=== PATIENT | female | born 1980 | race Caucasian/White ===

== ENCOUNTER 2021-09-19 13:54 | Emergency (ER) | payer SELFPAY ==
[2021-09-19 14:04] VITALS: BP 143/99; PULSE 78; RESP 18; TEMP 36.8; O2SAT 100
[2021-09-19 15:39] LABS: Basophils Percent Auto 0.4 % (0.2-1.2); Eosinophils Absolute Auto 0.1 K/mm3 (0-0.3); Eosinophils Percent Auto 1.5 % (0-4.4); Hemoglobin 13.6 g/dL (12.0-15.0); Immature Granulocyte Absolute 0.02 K/mm3 (0.00-0.031); Immature Granulocyte Percent A 0.2 % (0-0.5); Lymphocytes Absolute Auto 3.07 K/mm3 (0.9-3.2); Lymphocytes Percent Auto 32.9 % (18.3-44.2); Mean Corpuscular Hemoglobin 32.7 pg (26-34); Mean Corpuscular Volume 96.2 fl (80-100); Mean Platelet Volume 9.6 fl (7.4-10.4); Monocytes Absolute Auto 0.6 K/mm3 (0.1-0.6); Monocytes Percent Auto 6.5 % (2.6-8.5); Neutrophils Absolute Auto 5.4 K/mm3 (1.3-6.7); Neutrophils Percent Auto 58.5 % (45.5-73.1); Platelet Count Result 313 k/mm3 (150-375); Red Blood Count 4.16 M/mm3 (4.2-5.4); Red Cell Distribution Width 13.2 % (11.5-14.5); White Blood Count 9.3 K/mm3 (4.5-10.0)
[2021-09-19 15:50] LABS: Add Urine Microscopic? YES; Appearance Urine Clear (Clear); Bacteria Urine Trace /hpf; Bilirubin Urine Negative (Negative); Blood Urine 1+ (Negative); Color Urine Straw (Yellow); Glucose Urine UA Negative (Negative); Ketones Urine Negative (Negative); Leukocyte Esterase Ur Negative LEU/UL (Negative); Mucus Urine Rare /lpf; Nitrate Urine Negative (Negative); Protein Urine Negative (Negative); Specific Grav Ur 1.006 (1.001-1.035); Squamous Epithelial Cell Urine Rare /hpf (Few); Urobilinogen Urine Negative mg/dL (<2.0); WBC Urine 0-3 /hpf
[2021-09-19 15:52] LABS: Alanine Aminotransferase 22 U/L (4-35); Albumin Level 4.3 g/dL (3.5-5.1); Alkaline Phosphatase 48 U/L (38-126); Anion Gap 7 mmol/L (8-16); Aspartate Amino Transferase 24 U/L (14-36); Bilirubin,Total 0.5 mg/dL (0.2-1.3); Blood Urea Nitrogen 8 mg/dL (7-17); Calcium 9.4 mg/dL (8.4-10.2); Carbon Dioxide 23 mmol/L (22-30); Chloride 106 mmol/L (98-107); Estimated CRCL calculation 75 ml/min; Estimated Glomerular Filt Rate > 60; Glucose 91 mg/dL (65-110); Potassium 3.5 mmol/L (3.4-5.0); Sodium 136 mmol/L (137-145)
[2021-09-19 16:00] LABS: NT Pro B Type Natriuretic Pept 77 pg/mL (5-100)
[2021-09-19 16:06] LABS: D Dimer 0.27 ug/mL (<0.48)
--- NOTE | 2021-09-19 16:49 | ED.EXTPRO ---
HPI - Extremity Problem General Chief complaint: Extremity Problem,Nontraumatic Stated complaint: bilateral ankle swelling Time Seen by Provider: 09/19/21 14:40 Source: patient Mode of arrival: ambulatory Limitations: no limitations History of Present Illness HPI Narrative: 41-year-old female Complains of painless bilateral foot swelling for 2 or 3 days She does work long days on her feet, otherwise does not have any specific medical problems or take any medications that ought to result and edema as far as she knows Specifically there is no cardiac, renal, or liver disease that she knows of She has no fever, no pain, no history of injury Related Data Allergies Allergy/AdvReac Type Severity Reaction Status Date / Time morphine Allergy Mild Unknown Verified 09/19/21 14:12 sulfamethoxazole Allergy Mild Unknown Verified 09/19/21 14:12 trimethoprim Allergy Mild Unknown Verified 09/19/21 14:12 Review of Systems Review of Systems: All systems reviewed & are unremarkable except as noted in HPI and below Constitutional: Constitutional: Reports no additional constitutional complaints, Denies fever(s) and Denies headache(s) ENT: Denies headache(s) Cardiovascular: Cardiovascular: Denies chest pain and Denies dyspnea Respiratory: Respiratory: Denies cough and Denies dyspnea Gastrointestinal: Gastrointestinal: Denies abdominal pain, Denies diarrhea and Denies vomiting Genitourinary: Genitourinary: Denies urinary frequency and Denies dysuria Musculoskeletal: Musculoskeletal: Denies deformity, Denies arthralgias, Reports joint swelling and Denies numbness Integumentary/Breasts: Skin/Breast: Denies rash and Denies wounds Neurologic: Denies numbness Endocrine: Endocrine: Reports no additional endocrine complaints Allergic/Immunologic: Allergic/Immunologic: Reports no additional allergic/immunologic complaints Exam Const: General: cooperative, healthy appearing, no acute distress and alert Orientation/consciousness: patient oriented x3 (alert) HENMT: Head: normal to inspection, normocephalic and atraumatic Ears: external ears normal General nose exam: no epistaxis Eyes: Conjunctivae: conjunctivae normal EOM: EOMs intact bilaterally Neck: Neck: normal visual inspection, supple and no JVD Resp: Effort & Inspection: normal respiratory effort and not labored Auscultation: clear to auscultation bilaterally and other (BS =) Cardio: Rate: regular rate Rhythm: regular rhythm GI: GI Palp: Yes Soft to palpation and No Tenderness to palpation present (GI) Skin: General skin exam: normal color and no rashes or lesions noted Rashes: no rashes Neuro: General: patient oriented x3 (alert) and moves all extremities Speech: normal speech Extrem: General: normal to inspection Other: Trace to 1+ edema bilaterally to just above ankles, no calf tenderness, normal cap refill, normal pulses Psych: Affect: normal affect Course Course Emergency Course: Initial assessment in the ED is unrevealing, discussed with patient that there was no evidence of any cardiac, liver, renal, or venous disease to account for her symptoms recommend elevation, elastic stockings, follow-up with your primary for further evaluation if that does not succeed Vital Signs Vital signs: Vital Signs Temperature 36.8 C 09/19/21 14:04 Pulse Rate 78 09/19/21 14:04 Respiratory Rate 18 09/19/21 14:04 Blood Pressure 143/99 H 09/19/21 14:04 Pulse Oximetry 100 09/19/21 14:04 Temperature 36.8 C 09/19/21 14:04 Pulse Rate 78 09/19/21 14:04 Respiratory Rate 18 09/19/21 14:04 Blood Pressure 143/99 H 09/19/21 14:04 Pulse Oximetry 100 09/19/21 14:04 MDM - Extremity (Nontraumatic) Lab Data Result diagrams: 09/19/21 15:18 09/19/21 15:18 Labs: Lab Results 09/19/21 09/19/21 09/19/21 Range/Units 15:18 15:18 15:18 WBC 9.3 (4.5-10.0) K/mm3 RBC 4.16 L (4.2-5.4) M/mm3 Hgb 13.6 (12.0-15.0)
== END 2021-09-19 17:05 | disposition home or self-care (01) ==
PROVIDERS: Emergency Provider Emergency Medicine
DX: R60.0 Localized edema (principal)
CPT/HCPCS: 36415; 80053; 81001; 83880; 85025; 85380; 99283

== ENCOUNTER 2024-10-08 09:57 | Emergency (ER) | payer SELFPAY ==
[2024-10-08 10:02] VITALS: PULSE 90; RESP 20; TEMP 37; O2SAT 100
--- OUTSIDE RECORDS SUMMARY | 2024-10-08 11:09 | XMS_ITS | Clinical Summary ---
Author Organization [facility] Address [facility] [place] [address] Care Team Providers Care Eeg Technician Name Role Phone Gracia Milton Primary Care Provider [phone] Allergies Active Allergy Reactions Criticality Noted Date Comments Sulfamethoxazole-Trimethoprim Rash Low 2023 Entire body rash Morphine Swelling 08/04/2024 Medications SLYND 4 MG Tab Take 1 tablet by mouth daily. 07/04/2024 Active acyclovir (ZOVIRAX) 400 MG tablet Take 1 tablet (400 mg total) by mouth daily. 05/24/2024 Active Active Problems Problem Noted Date Diagnosed Date Cigarette nicotine dependence without complicati on 08/04/2024 Overview (08/04/2024): Initial visit 08/04/2024: She reports she smokes 1 pack/day cigarettes daily and has been smoking since she was a teenager. She reports in the past she has quit for a 3-month period time however resumed. She is not interested in quitting at this time. Assessment & Plan (08/04/2024 10:08 AM ADMISSIONS ASSISTANT): Counseled patient on the importance of smoking cessation. She is not interested in smoking cessation at this time. Uses marijuana 08/04/2024 Overview (08/04/2024): Initial visit 08/04/2024: She reports she smokes marijuana daily History of concussion 08/04/2024 Recurrent oral herpes simplex 08/04/2024 Overview (08/04/2024): Initial visit 08/04/2024: She reports she takes acyclovir 400 mg daily and 400 mg twice daily if she has active lesion. She reports she has been having episodes for as long as she can remember. Assessment & Plan (08/04/2024 10:53 AM ADMISSIONS ASSISTANT): Patient counseled that because she is on acyclovir long-term she likely needs her kidney and liver function checked. Family history of diabetes mellitus (DM) 024 OAB (overactive bladder) 08/04/2024 Overview (08/04/2024): Initial visit 08/04/2024: She reports she has tried medications in the past however could not tolerate side effects. Not currently on medication. Restless leg syndrome 08/04/2024 Overview (08/04/2024): Initial visit 08/04/2024: Patient reported. She reports she has been experiencing for a few years. She is not currently on medication therapy. Assessment & Plan (08/04/2024 10:28 AM ADMISSIONS ASSISTANT): Discussed with patient that blood count likely needs to be checked as anemia can contribute to restless leg symptoms. This can be done at another time. History of 08/04/2024 Screening for depression declined 08/04/2024 Overview (08/04/2024): Declined 08/04/2024 External hemorrhoids 08/04/2024 Assessment & Plan (08/04/2024 10:54 AM ADMISSIONS ASSISTANT): Patient has small, nonthrombosed external hemorrhoids. I suspect she may have internal hemorrhoids however internal rectal exam was not performed at this visit. Patient is counseled on the importance of softening her stool so she does not to strain for bowel movements and is recommended to take docusate sodium 100 mg oral twice daily in addition to increasing dietary fiber intake specially with bulk forming laxatives such as psyllium. She can use topical hydrocortisone 2.5% cream twice daily to anus up to however no more than 7 days. She can also use witch sameer pads [id number] after bowel movements to help with irritation. Resolved Problems Problem Noted Date Diagnosed Date Resolved Date Colon cancer screening 08/04/202408/11 Encounters Date Type Department Care Team Description 08/04/2024 9:20 AM ADMISSIONS ASSISTANT Office Visit [facility] Multispecialty Care - [address] [place] [address] Gracia Milton, Establish Care 08/04/2024 Travel from Last 3 Months Family History Medical History Relation Comments Alcohol/Drug Brother No Known Problems Father No Known Problems Half-sister Leukemia Maternal Grandfather Cancer Maternal Grandmother unknown typ e Diabetes Mother No Known Problems Son Relation Status Comments Brother Alive Father Unknown Half-brother Alive Half-sister Alive Maternal Grandfather Maternal Grandmother Mother Alive Other Paternal Grandfather Unknown Paternal Grandmother Unknown Son Alive Social History Tobacco Use Types Packs/Day Years Used Date Smoking Tobacco: Every Day Cigarettes Smokeless Tobacco: Never Tobacco Cessation:Ready to Q uit: No; Counseling Given: Yes Alcohol Use Standard Drinks/Week Comments Not Currently 0 (1 standard drink = 0.6 oz pur e alcohol) Comments No Sex and Gender Information Value Date Recorded Sex Assigned at Not on file Legal Sex Female 8:30 PM CDT Gender Identity Not on file Sexual Orientation Not on file Last Filed Vital Signs Vital Sign Reading Time Taken Comments Blood Pressure 126/64 08/04/2024 9:27 AM ADMISSIONS ASSISTANT Pulse 80 08/04/2024 9:27 AM ADMISSIONS ASSISTANT Temperature - - Respiratory Rate 16 08/04/2024 9:27 AM ADMISSIONS ASSISTANT Oxygen Saturation 98% 08/04/2024 9:27 AM ADMISSIONS ASSISTANT Inhaled Oxygen Concentration - - Weight 53.3 kg (117 lb 6.4 oz) 08/04/2024 9:27 A M ADMISSIONS ASSISTANT Height 157.5 cm (5' 2 ) 08/04/2024 9:27 AM ADMISSIONS ASSISTANT Body Mass Index 21.47 08/04/2024 9:27 AM ADMISSIONS ASSISTANT Plan of Treatment Health Maintenance Due Date Last Done Comments Cervical Cancer Screening Pa p Smear (Age 30 to 64) Every 3 Years 1979 Colorectal Cancer Screening Colonoscopy (10 Years) 1979 Annual Physical 1982 Pneumococcal Vaccine: Pediat rics (0 to 5 Years) and At-Risk Patients (6 to 64 Years) (1 of 2 - PCV) 1985 PHQ-2 (Physician [place]) 1991 Hepatitis C 1997 Hepatitis B Vaccines (1 of 3 - 19+ 3-dose series) 1998 Cervical Cancer Screening Pa p with HPV Testing (Age 30 to 64) Every 5 Years 2009 Cervical Cancer Screening with HPV 2009 Mammogram Screening 2019 COVID-19 Vaccine (1 - 2023-2 5 season) 2024 Influenza Adult (#1) 2024 PHQ-2 (Physician [place]) 08/13/2024 DTaP, Tdap and Td Vaccines ( 2 - Td or Tdap) 08/08/2025 08/08/2015 HPV Vaccines Aged Out No longer eligi ble based on patient's age to complete this topic Meningococcal B Vaccine Aged Out No l onger eligible based on patient's age to complete this topic Meningococcal Vaccine Aged Out No elvis lamin eligible based on patient's age to complete this topic RSV Immunizations Under 20 Months Aged Out No longer eligible based on patient's age to complete this topic Care Teams Eeg Technician Relationship Specialty Start Date End Date Gracia Milton DO [address] [place] [address] PCP - General FAMILY PRACTICE 08/01/24
--- NOTE | 2024-10-08 12:01 | ED_ITS ---
HPI - URI/Sore Throat General Chief Complaint: Upper Respiratory Infection <Fani Hernandez PA-C - Last Filed: 10/08/24 14:46> Stated Complaint: my throat, my ear, I haven't ate since Sunday <Fani Hernandez PA-C - Last Filed: 10/08/24 14:46> Time Seen by Provider: 10/08/24 12:01 <Fani Hernandez PA-C - Last Filed: 10/08/24 14:46> Focused HPI: This is a 44 year old female that presents to the ER for sore throat. Ongoing over the last 3 days. Reports fevers, cough, headache. GENERAL: Well-appearing, well-nourished, and in no acute distress. HEAD: Normocephalic, atraumatic. CHEST: Clear to auscultation. ?No respiratory distress. HEART: Regular rate and rhythm.? NEURO: ?Alert and oriented x3. Patient screened in triage and initial orders placed.? ?Additional care and disposition to be based upon?diagnostic testing and treatment. <Fani Hernandez PA-C - Last Filed: 10/08/24 14:46> History of Present Illness HPI Narrative: Patient 44-year-old female presents emergency department with chief complaint of sore throat and bilateral ear pain. The patient reports that she has history of multiple ear infections. Patient reports that symptoms been ongoing since Sunday reports that hurts whenever she swallows but is able to swallow. Patient denies stridor <Freddy Rosales MD - Last Filed: 10/08/24 13:21> Related Data Allergies/Adverse Reactions: Allergies Allergy/AdvReac Type Severity Reaction Status Date / Time morphine Allergy Mild Unknown Verified 10/08/24 09:58 sulfamethoxazole Allergy Mild Unknown Verified 10/08/24 09:58 trimethoprim Allergy Mild Unknown Verified 10/08/24 09:58 <Fani Hernandez PA-C - Last Filed: 10/08/24 14:46> Review of Systems Review of Systems: A 10 system review of systems was completed on the patient and is negative except for what is stated in the HPI. Nursing and ancillary documentation was reviewed. <Freddy Rosales MD - Last Filed: 10/08/24 13:21> Exam Narrative: GENERAL: Well-appearing, well-nourished, and in no acute distress. HEAD: Normocephalic, atraumatic. EYES: PERRLA and EOMI. ENT: Nares clear, no rhinorrhea or epistaxis. Mucous membranes moist. Left tympanic membrane is erythematous and there is effusion present NECK: Supple. CHEST: Clear to auscultation. No respiratory distress. HEART: Regular rate and rhythm. No murmur heard. Normal peripheral pulses. ABDOMEN: Soft, nontender, nondistended, normal active bowel sounds. EXTREMITIES: Normal range of motion. No edema. SKIN: Warm, dry, no rash. NEURO: No focal deficits. Alert and oriented x3. PSYCH: Normal mood and affect. <Freddy Rosales MD - Last Filed: 10/08/24 13:21> Course Vital Signs Vital signs: Vital Signs Temperature 98.6 F 10/08/24 10:02 Pulse Rate 90 10/08/24 10:02 Respiratory Rate 20 10/08/24 10:02 Pulse Oximetry 100 10/08/24 10:02 Oxygen Delivery Room Air 10/08/24 10:02 Temperature 98.6 F 10/08/24 10:02 Pulse Rate 75 10/08/24 13:58 Respiratory Rate 16 10/08/24 13:58 Blood Pressure 125/86 10/08/24 13:58 Pulse Oximetry 100 10/08/24 13:58 Oxygen Delivery Room Air 10/08/24 12:42 <Fnai Hernandez PA-C - Last Filed: 10/08/24 14:46> Vital Signs Temperature 98.6 F 10/08/24 10:02 Pulse Rate 90 10/08/24 10:02 Respiratory Rate 20 10/08/24 10:02 Pulse Oximetry 100 10/08/24 10:02 Oxygen Delivery Room Air 10/08/24 10:02 Temperature 98.6 F 10/08/24 10:02 Pulse Rate 75 10/08/24 13:58 Respiratory Rate 16 10/08/24 13:58 Blood Pressure 125/86 10/08/24 13:58 Pulse Oximetry 100 10/08/24 13:58 Oxygen Delivery Room Air 10/08/24 12:42 <Freddy Rosales MD - Last Filed: 10/08/24 13:21> MDM - URI/Sore Throat MDM Narrative Medical decision making narrative: Differential diagnosis includes viral illness, otitis media, strep pharyngitis Patient was positive on exam for acute otitis media on the left Patient was started on Augmentin for this The patient is negative for strep patient did have significant pharyngitis patient was started on steroids <Freddy Rosales MD - Last Filed: 10/08/24 13:21> Lab Data Labs: Lab Results 10/08/24 Range/Units 12:42 Influenza A (RT-PCR) Positive A (Negative) Influenza B (RT-PCR) Negative (Negative) RSV (RT-PCR) Negative (Negative) SARS-CoV-2 RNA (RT-PCR) Negative (Negative) Group A Strep (PCR) Not detected (Negative) <Fani Hernandez PA-C - Last Filed: 10/08/24 14:46> Lab Results 10/08/24 Range/Units 12:42 Influenza A (RT-PCR) Positive A (Negative) Influenza B (RT-PCR) Negative (Negative) RSV (RT-PCR) Negative (Negative) SARS-CoV-2 RNA (RT-PCR) Negative (Negative) Group A Strep (PCR) Not detected (Negative) <Frdedy Rosales MD - Last Filed: 10/08/24 13:21> Critical Care Time Critical Care Time Critical Care Time: No <Fani Hernandez PA-C - Last Filed: 10/08/24 14:46> Discharge Plan Discharge Clinical Impression: Acute left otitis media, Influenza A Pharyngitis Qualifiers: Pharyngitis/tonsillitis etiology: unspecified etiology Qualified Code(s): J02.9 - Acute pharyngitis, unspecified <Fani Hernandez PA-C - Last Filed: 10/08/24 14:46> Patient Disposition: Home, Self-Care <Fani Hernandez PA-C - Last Filed: 10/08/24 14:46> Condition: Stable <Fani Hernandez PA-C - Last Filed: 10/08/24 14:46> Instructions: Antibiotic Form, Pharyngitis (ED), Ear Infection (ED), Earache (ED) <Fani Hernandez PA-C - Last Filed: 10/08/24 14:46> Patient Language: Maltese <Fani Hernandez PA-C - Last Filed: 10/08/24 14:46> Prescriptions: New amoxicillin-pot clavulanate 875-125 mg tablet 1 tablet PO Q12H 10 Days Qty: 20 0RF prednisone 20 mg tablet 40 mg PO DAILY 5 Days Qty: 10 0RF oseltamivir [Tamiflu] 75 mg capsule 75 mg PO Q12H 5 Days Qty: 10 0RF <Fani Hernandez PA-C - Last Filed: 10/08/24 14:46> Follow-up/Referrals: Sohan Dykes MD [Physician] - PHYSICIAN,DRIER AND EVAPORATOR OPERATOR [Non-Staff] - <Fani Hernandez PA-C - Last Filed: 10/08/24 14:46> Time of Disposition: 13:36 <Fani Hernandez PA-C - Last Filed: 10/08/24 14:46> 13:36 <Freddy Rosales MD - Last Filed: 10/08/24 13:21>
[2024-10-08 12:42] VITALS: BP 118/80; PULSE 75; RESP 16; O2SAT 100
[2024-10-08] MEDS: predniSONE 20 MG TABLET 60 MG PO (12:45)
[2024-10-08] MEDS: AMOXICILLIN/CLAVULANATE K 875-125 MG TAB 1 TABLET PO (12:45)
--- NOTE | 2024-10-08 12:45 | PC.NURSE ---
COVID/Flu/RSV and Step swab sent to lab.
[2024-10-08 13:14] LABS: Strep Group A RT-PCR NOT DETECTED (Negative)
[2024-10-08 13:25] LABS: Influenza A QL RT-PCR Positive (Negative); Influenza B QL RT-PCR Negative (Negative); RSV RNA, RT-PCR Negative (Negative); SARS-CoV-2 RNA PCR Negative (Negative)
--- OUTSIDE RECORDS SUMMARY | 2024-10-08 13:52 | XMS_ITS | Clinical Summary ---
Author Organization [facility] Address [facility] [place] [address] Care Team Providers Care Senior Finance Manager Name Role Phone Gracia Milton Primary Care Provider [phone] Allergies Active Allergy Reactions Criticality Noted Date [...] time. Assessment & Plan (08/04/2024 10:08 AM INFRASTRUCTURE ADMINISTRATOR): Counseled patient on the importance of smoking [...] remember. Assessment & Plan (08/04/2024 10:53 AM INFRASTRUCTURE ADMINISTRATOR): Patient counseled that because she is on [...] therapy. Assessment & Plan (08/04/2024 10:28 AM INFRASTRUCTURE ADMINISTRATOR): Discussed with patient that blood count likely needs to be checked as anemia can contribute to restless leg symptoms. This can be done at another time. History of 08/04/2024 Screening for depression declined 08/04/2024 Overview (08/04/2024): Declined 08/04/2024 External hemorrhoids 08/04/2024 Assessment & Plan (08/04/2024 10:54 AM INFRASTRUCTURE ADMINISTRATOR): Patient has small, nonthrombosed external hemorrhoids. I [...] She can also use witch sameer pads [id number] after bowel movements to help with irritation. Resolved Problems Problem Noted Date Diagnosed Date Resolved Date Colon cancer screening 08/04/202408/11 Encounters Date Type Department Care Team Description 08/04/2024 9:20 AM INFRASTRUCTURE ADMINISTRATOR [facility] Multispecialty Care - [address] [place] [address] Gracia Milton, Establish Care 08/04/2024 [...] Comments Blood Pressure 126/64 08/04/2024 9:27 AM INFRASTRUCTURE ADMINISTRATOR Pulse 80 08/04/2024 9:27 AM INFRASTRUCTURE ADMINISTRATOR Temperature - - Respiratory Rate 16 08/04/2024 9:27 AM INFRASTRUCTURE ADMINISTRATOR Oxygen Saturation 98% 08/04/2024 9:27 AM INFRASTRUCTURE ADMINISTRATOR Inhaled Oxygen Concentration - - Weight 53.3 kg (117 lb 6.4 oz) 08/04/2024 9:27 A M INFRASTRUCTURE ADMINISTRATOR Height 157.5 cm (5' 2 ) 08/04/2024 9:27 AM INFRASTRUCTURE ADMINISTRATOR Body Mass Index 21.47 08/04/2024 9:27 AM INFRASTRUCTURE ADMINISTRATOR Plan of Treatment Health Maintenance Due Date Last Done Comments Cervical Cancer Screening Pa p Smear (Age 30 to 64) Every 3 Years 1979 Colorectal Cancer Screening Colonoscopy (10 Years) 1979 Annual Physical 1982 Pneumococcal Vaccine: Pediat rics (0 to 5 Years) and At-Risk Patients (6 to 64 Years) (1 of 2 - PCV) 1985 PHQ-2 (Physician [place]) 1991 Hepatitis C 1997 Hepatitis B Vaccines (1 of 3 - 19+ 3-dose series) 1998 Cervical Cancer Screening Pa p with HPV Testing (Age 30 to 64) Every 5 Years 2009 Cervical Cancer Screening with HPV 2009 Mammogram Screening 2019 COVID-19 Vaccine (1 - 2023-2 5 season) 2024 Influenza Adult (#1) 2024 PHQ-2 (Physician [place]) 08/13/2024 DTaP, Tdap and Td Vaccines ( [...] age to complete this topic Care Teams Senior Finance Manager Relationship Specialty Start Date End Date Gracia Milton DO [address] [place] [address] PCP - General FAMILY PRACTICE 08/01/24
[2024-10-08 13:58] VITALS: BP 125/86; PULSE 75; RESP 16; O2SAT 100
== END 2024-10-08 13:59 | disposition home or self-care (01) ==
PROVIDERS: Physician Assistant; Emergency Provider Emergency Medicine
DX: H66.92 Otitis media, unspecified, left ear (principal); J10.1 Influenza due to other identified influenza virus with other respiratory manifestations; Z20.822 Contact with and (suspected) exposure to COVID-19
CPT/HCPCS: 87637; 87651; 99283; A9270; J7512